=== PATIENT | male | born 1945 | race Caucasian/White ===

== ENCOUNTER 2020-01-03 12:46 | Emergency (ER) | payer MEDICARE, BC ==
[~2020-01-03] VITALS: Ht 180.3 cm; Wt 105.1 kg
[2020-01-03] MEDS ORDERED: ondansetron/PF 4mg/2ml inj IV ONE ×2 (13:10→14:25)
[2020-01-03] MEDS ORDERED: ketorolac trometh. 30mg/ml inj. IV ONE (13:10)
[2020-01-03 13:22] LABS: CLARITY,URINE CLEAR (Clear); COLOR,URINE STRAW (Yellow); GLUCOSE, URINE NEGATIVE (Neg); KETONES,URINE NEGATIVE (Neg); LEUKOCYTE ESTERASE ,URINE NEGATIVE (Neg); NITRITES, URINE NEGATIVE (Neg); OCCULT BLOOD,URINE TRACE-INTACT (Neg); PROTEIN,URINE NEGATIVE (Neg); UROBILINOGEN,URINE 0.2 E.U/dL (0.2-1.0)
[2020-01-03 13:24] LABS: UA COLLECTION TYPE CLN CATCH MIDSTREAM
[2020-01-03 13:30] LABS: BACTERIA,URINE NONE SEEN /HPF (Neg); MUCUS STRANDS NONE SEEN /LPF (Neg); RBC,URINE 0-2 /HPF (0-2); SQUAMOUS EPITHELIAL CELL,UR NONE SEEN /LPF (FEW); WBC,URINE 0-4 /HPF (0-4)
[2020-01-03 13:34] LABS: BASOPHILS # (AUTO) 0.1 X10'3 (0-0.2); EOSINOPHILS # (AUTO) 0.2 X10'3 (0-0.9); HEMATOCRIT 43.3 % (42.0-52.0); HEMOGLOBIN 14.9 g/dl (14.0-17.9); LYMPHOCYTES # (AUTO) 2.6 X10'3 (1.1-4.8); LYMPHOCYTES % (AUTO) 31.1 % (21-51); MEAN CORPUSCULAR HEMOGLOBIN 31.4 PG (27.0-31.0); MEAN CORPUSCULAR HGB CONC 34.5 g/dL (33.0-36.5); MEAN CORPUSCULAR VOLUME 91.1 FL (78-98); MEAN PLATELET VOLUME 8.3 FL (7.4-10.4); MONOCYTES # (AUTO) 0.8 X10'3 (0-0.9); MONOCYTES % (AUTO) 9.9 % (2-12); NEUTROPHILS # (AUTO) 4.7 X10'3 (1.8-7.7); PLATELET COUNT 259 X10'3 (140-440); RED BLOOD COUNT 4.76 X10'6 (4.70-6.10); RED CELL DISTRIBUTION WIDTH 14.1 % (11.5-14.5); WHITE BLOOD COUNT 8.3 X10'3 (4.5-11.0)
--- NOTE | 2020-01-03 13:40 | NUR ---
To CT scan via w/c.
[2020-01-03 13:49] LABS: ALANINE AMINOTRANSFERASE 46 U/L (12-78); ALBUMIN 3.7 G/DL (3.4-5.0); ALBUMIN/GLOBULIN RATIO 0.9 (1.1-1.5); ALKALINE PHOSPHATASE 74 IU/L (46-116); ANION GAP 9 (8-16); ASPARTATE AMINO TRANSFERASE 33 U/L (10-37); BILIRUBIN,TOTAL 0.3 MG/DL (0.1-1.0); BLOOD UREA NITROGEN 14 MG/DL (7-18); BUN/CREATININE RATIO 10.9 (5.4-32.0); CALCIUM 8.9 MG/DL (8.5-10.1); CHLORIDE 104 MMOL/L (99-107); CREATININE 1.29 MG/DL (0.60-1.10); LIPASE 201 U/L (73-393); SODIUM 141 MMOL/L (135-145); TOTAL CARBON DIOXIDE 27.6 MMOL/L (24-32); TOTAL PROTEIN 7.6 G/DL (6.4-8.2); eGFR 55 ML/MIN
[2020-01-03 13:50] LABS: GLUCOSE 110 MG/DL (70-104)
[2020-01-03] MEDS ORDERED: tamsulosin 0.4mg capsule PO ONE (14:25)
[2020-01-03] MEDS ORDERED: ketorolac tromethamine 15mg/ml inj. IV ONE (14:25)
[2020-01-03] MEDS ORDERED: normal saline 1000ML IV soln IVB ONE (14:25)
[2020-01-03] MEDS ORDERED: HYDR-4353 PO (14:27)
[2020-01-03] MEDS ORDERED: IBUP-1984 PO (14:27)
[2020-01-03] MEDS ORDERED: FLO0.4C PO (14:27)
--- NOTE | 2020-01-03 15:38 | NUR ---
PT's IV fluid is completed infusing. Pt's discharge to home is pending.
--- NOTE | 2020-01-03 15:47 | NUR ---
Discussed pt's increased BP and pain with JESSENIA Hay; new order for Morphine 4mg received.
[2020-01-03] MEDS ORDERED: morphine 4 MG/ML inj SYRINge IV ONE (15:50)
[2020-01-03 16:19] VITALS: BP 183/88
== END 2020-01-03 16:23 | disposition home or self-care (01) ==
LOC: ER 12:47
DX: N20.0 Calculus of kidney (principal); R10.9 Unspecified abdominal pain; Z90.49 Acquired absence of other specified parts of digestive tract; Z98.890 Other specified postprocedural states; Z72.89 Other problems related to lifestyle
CPT/HCPCS: 36415; 74176; 80053; 81001; 83690; 85025; 96374; 96375; 96376; 99284; J1885; J2270; J2405; J7030